=== PATIENT | male | born 1980 | race Caucasian/White ===

== ENCOUNTER 2025-01-16 09:54 | Inpatient (IN) | payer BC, SELFPAY ==
[2025-01-16] VITALS (10 sets, daily range): BP systolic 112–132; BP diastolic 61–91; PULSE 77–89; RESP 16–22; TEMP 36.3–37.2; O2SAT 95–99; BMI 34.3
--- NOTE | ~2025-01-16 | CT_ITS ---
CLINICAL HISTORY: abdominal pain CT abdomen and pelvis with contrast Comparison: None Findings: The lung bases are clear. The liver, gallbladder, spleen, adrenal glands and pancreas are unremarkable. Kidneys, ureters and bladder are normal. Prostate gland is unremarkable. There is anastomosis within the left lower quadrant which is patent however there is questionable breakdown given the prominent stranding and tiny foci of free air, axial image 64. Mild thickening of the proximal sigmoid colon distal to this region. Reference axial images 70-75. No current abscess. No acute osseous finding. Impression: Along the anterior margin of the left lower quadrant colonic anastomosis there is redundant soft tissue and significant stranding with evidence of perforation. Anastomotic breakdown versus perforated diverticulitis. No abscess currently. Close follow-up recommended. This document has been electronically signed by: Chaim Degroot MD on 01/16/2025 11:55:22
[2025-01-16 10:22] LABS: MANUAL DIFF FLAG NO
[2025-01-16 10:23] LABS: Basophils Absolute Auto 0.1 X10*3/uL (0.0-0.2); Basophils Percent Auto 0.6 % (0-2); Eosinophils Absolute Auto 0.1 X10*3/uL (0.0-0.4); Eosinophils Percent Auto 0.6 % (0-4); Hematocrit 43.8 % (42.0-52.0); Hemoglobin 15.3 g/dl (14.0-18.0); Imm Gran Abs Auto 0.06 X10*3/uL (0.00-0.03); Imm Gran Pct Auto 0.4 % (0.0-0.4); Lymphocytes Absolute Auto 2.2 X10*3/uL (1.2-4.9); Lymphocytes Percent Auto 15.8 % (20-40); Mean Corpuscular HGB Conc 34.9 g/dl (31.0-36.0); Mean Corpuscular Hemoglobin 29.5 pg (27.0-33.0); Mean Corpuscular Volume 84.6 fL (80.0-98.0); Mean Platelet Volume 8.9 fL (9.4-12.4); Monocytes Absolute Auto 1.1 X10*3/uL (0.1-1.2); Monocytes Percent Auto 7.7 % (2-11); Neutrophils Absolute Auto 10.4 x10*3/uL (2.0-8.3); Neutrophils Percent Auto 74.9 % (45-73); Platelet Count 338 X10*3/uL (160-400); Red Blood Count 5.18 X10*6/uL (4.60-5.80); Red Cell Distribution Width 12.7 % (11.0-16.0); White Blood Count 13.9 X10*3/uL (4.8-10.8)
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
[2025-01-16 10:36] LABS: Alanine Aminotransferase 39 U/L (0-40); Albumin Level 4.5 g/dL (3.5-5.0); Alkaline Phosphatase 81 U/L (39-117); Anion Gap 14 (12-20); Aspartate Amino Transferase 23 U/L (5-37); Bilirubin Direct 0.1 mg/dL (0.0-0.5); Bilirubin Total 0.4 mg/dL (0.0-1.0); Blood Urea Nitrogen 15 mg/dL (9-16); Calcium 9.4 mg/dL (8.4-10.2); Carbon Dioxide 22 mmol/L (22-29); Chloride 106 mmol/L (96-108); Creatinine Clr Calc Pharmacy 136.2; Estimated Glomerular Filt Rate > 60; Glucose Random 100 mg/dL (60-115); Lipase 15 U/L (8-78); Potassium 4.1 mmol/L (3.3-5.1); Sodium 138 mmol/L (135-145); Total Protein 7.7 g/dL (6.5-8.0)
[2025-01-16] MEDS: 0.9 % Sodium Chloride 1,000 ML 999 ML IVCONT ×2 (10:47→12:41)
[2025-01-16] MEDS: HYDROmorphone HCl 0.5 MG/0.5 ML SYRINGE IVPUSH ×3 (10:47→16:18)
--- OUTSIDE RECORDS SUMMARY | 2025-01-16 10:49 | XMS_ITS | Encounter Summary ---
Author Organization [facility] Address [address] [place] [address] Care Team Providers Care Track Walker Name Role Phone No, Pcp (Do Not Change Name) Primary Care Provid er Unavailable Encounter Details Date Type Department Care Team (Latest Contact Info) Description 06/19/2021 Transcribed Orders [place] - [facility] [address] [facility] [address] [place] [address] Mitchel Presley DPM [address] [facility] [address] [place] [address] Macronychia (Primary Dx) Social History Tobacco Use Types Packs/Day Years Used Date Smoking Tobacco: Never Assessed Sex and Gender Information Value Date Recorded Sex Assigned at Not on file Legal Sex Male 9:57 AM EDT Gender Identity Not on file Sexual Orientation Not on file documented as of this encounter Plan of Treatment Not on file documented as of this encounter Results * Hepatic function panel (06/19/2021 10:03 AM EDT) Total Bilirubin 0.4 0.0 - 1.0 mg/dL 06/19/2021 1:48 PM [facility] PATHOLOG[facility] Comment:Use of this assay is not recommended for patients undergoing treatment with Eltrombopag due to the potential for falsely elevated results. Bilirubin, Direct 0.1 0.0 - 0.3 mg/dL 06/19/2021 1:48 PM [facility] Bilirubin, Indirect 0.3 mg/dL 06/19 1:48 PM [facility] Alkaline Phosphatase 79 20 - 135 U/L 06/19/2021 1:48 PM [facility] PATHOLOG[facility] Alanine Aminotransferase (ALT) 54 12 - 78 U/L 06/19/2021 1:48 PM EDT [facility] Aspartate Aminotransferase (AST) 20 5 - 37 U/L 06/19/2021 1:48 PM [facility] AST/ALT Ratio 0.4 See Comment 06/19/2021 1:48 PM EDT [facility] Comment: Adult with mild elevations of transaminases (< 5 times upper limit of normal): AST/ALT > 2 suggests alcoholic liver injury AST/ALT < 1 suggests non-alcoholic fatty liver disease (NAFLD) [place] (healthy): AST/ALT can be > 3 on day 0 AST/ALT < 2 by day 5 The thresholds provided focus on the most common etiologies of elevated serum transaminase levels and the associated alteration of AST:ALT ratios; they are not intended to exclude other feasible and clinically appropriate possibilities Total Protein 7.5 6.4 - 8.2 g/dL 06/19/2021 1:48 PM [facility] Albumin 4.0 3.4 - 5.0 g/dL 06/19/2021 1:48 PM [facility] Globulin 3.5 g/dL 06/19/2021 1:48 PM [facility] A/G Ratio 1.1 06/19/2021 1:48 PM [facility] Blood Venipuncture / Unknown 06/19/2021 10:03 AM EDT 06/19/2021 10:03 AM EDT Mitchel Presley DP LAB BLOOD ORDERABLES Final Re sult [facility] PATH[facility] [address] [place] [address] documented in this encounter Visit Diagnoses Diagnosis Macronychia- Primary Other specified disease of nail documented in this encounter Additional Health Concerns Infection Onset Date Last Indicated Resolved Time R/O COVID-19 04/06/2022 04/06/2022 04/06/2022 6:55 PM EDT COVID-19 04/06/2022 04/06/2022 04/16/2022 7:18 PM EDT documented as of this encounter Care Teams Track Walker Relationship Specialty Start Date End Date No, Pcp (Do Not Change Name) PCP - General 06/19/21 documented as of this encounter
--- OUTSIDE RECORDS SUMMARY | 2025-01-16 10:49 | XMS_ITS | Clinical Summary ---
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?C (98.7 ??F) 12/23/2020 1:57 PM ED T Respiratory Rate 18 12/23/2020 1:57 PM EDT Oxygen Saturation - - Inhaled Oxygen Concentration - - Weight 103 kg (227 lb) 12/23/2020 1:57 PM EDT Height 185.4 cm (6' 1 ) 12/23/2020 1:57 PM EDT Body Mass Index 29.95 12/23/2020 1:57 PM EDT Plan of Treatment Health Maintenance Due Date Last Done Comments Hepatitis C Virus Screening 1982 HIV Screening 1995 DTaP/Tdap/Td Vaccines (1 - Tdap) 2001 Hepatitis B Vaccines (1 of 3 - 19+ 3-dose series) 2001 Influenza Vaccine 04/28/2024 08/03/2019 COVID-19 Vaccine (4 - 2023-2 5 season) 2024 10/13/2021, 01/22/2021, 01/01/2021 HPV Vaccines Aged Out No longer eligi ble based on patient's age to complete this topic Pneumococcal Vaccine: Pediatric (0-5 Years) and At-Risk Patients (6 to 49 Years) Aged Out No longer eligible b ased on patient's age to complete this topic Insurance [facility]
[2025-01-16] MEDS: iohexoL 350 MG/ML 100 ML INFUS..BTL IV (11:22)
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
[2025-01-16] MEDS: Piperacillin Sodium/Tazobactam 4.5 GM in 0.9 % Sodium Chloride 100 ML IV (12:40)
[2025-01-16 12:48] LABS: Appearance Urine Clear; Color Urine Yellow; Glucose Urine UA Negative (Negative); Leukocyte Esterase Urine Negative (Negative); Nitrite Urine Negative (Negative); PH 6.5 (5.0-9.0); UMIC TRIGGER UACC YES; Urine Blood Moderate (2+) (Negative); Urine Ketones Negative (Negative); Urine Protein Negative (Neg-Trace)
[2025-01-16 12:50] LABS: Bacteria Urine None Seen (None Seen); Hyaline Casts Urine 0-2 /LPF (0-2); RBC Urine >20 /HPF (0-2); Squamous Epithelial Cell Urine 0-2 /HPF (0-2); WBC Urine 0-5 /HPF (0-5)
--- NOTE | 2025-01-16 13:10 | P.CONAN_ITS ---
HPI - Anesthesia Eval Consult details Narrative: Foe E-lap. Free air. PMFSH Active Problems Active Problems: All Active Problems Perforated bowel (Acute) Acute abdomen (Acute) Family History Family History (Updated 01/16/25 @ 12:32 by Connor Paulson MD) Other Family history of colon cancer Family history of problems with anesthesia: No Surgical History History of Problems with Anesthesia: No Social History Social History Advance Directives: No Advance Directives Information Provided: No Meds Allergies Allergy/AdvReac Type Severity Reaction Status Date / Time No Known Allergies Allergy Verified 01/16/25 10:08 Active Medications: Current Medications Acetaminophen (Acetaminophen 325 Mg Tablet) 650 mg PO Q6H PRN PRN Reason: Pain, Mild 1-3,fever,headache Calcium Carbonate (Calcium Carbonate 750 Mg Tab.Chew) 750 mg PO Q4H PRN PRN Reason: Heartburn Sodium Chloride (Ns) 1,000 mls @ 999 mls/hr IVCONT .Q1H1M [facility] Stop: 01/16/25 13:30 Last Admin: 01/16/25 12:41 Dose: 999 mls/hr Piperacillin Sod/Tazobactam (Sod 3.375 gm/ Sodium Chloride) 50 mls @ 100 mls/hr IV Q6H VELVET Lactated Ringer's (Lr) 1,000 mls @ 100 mls/hr IVCONT .Q10H VELVET Magnesium Hydroxide (Milk Of Magnesia 30 Ml Oral.Susp) 30 ml PO DAILY PRN PRN Reason: Constipation Melatonin (Melatonin 3 Mg Tablet) 6 mg PO BEDTIME PRN PRN Reason: Insomnia Sodium Chloride (0.9 % Sodium Chloride Flush 3 Ml Syringe) 3 ml IVFLUSH QSHIFT [facility] Exam Height,Weight and Vital Signs: Height 6 ft 1 in Weight 117.934 kg Last Vital Signs Temp 99.0 F 01/16/25 10:06 Pulse 89 01/16/25 12:25 Resp 19 01/16/25 12:25 BP 131/91 H 01/16/25 12:25 Pulse Ox 99 01/16/25 12:25 O2 Del Method Room Air 01/16/25 12:25 Pertinent Lab Results Pertinent Lab Results: Laboratory Tests 01/16/25 01/16/25 01/16/25 10:14 12:34 12:39 WBC 13.9 H RBC 5.18 Hgb 15.3 Hct 43.8 MCV 84.6 MCH 29.5 MCHC 34.9 RDW 12.7 Plt Count 338 MPV 8.9 L Immature Gran % (Auto) 0.4 Neut % (Auto) 74.9 H Lymph % (Auto) 15.8 L [place] % (Auto) 7.7 Eos % (Auto) 0.6 Baso % (Auto) 0.6 Lymph # (Auto) 2.2 [place] # (Auto) 1.1 Eos # (Auto) 0.1 Baso # (Auto) 0.1 Abs Immat Gran (auto) 0.06 H Absolute Neuts (auto) 10.4 H Absolute Nucleated RBC 0.000 Nucleated RBC % (auto) 0.0 Sodium 138 Potassium 4.1 Chloride 106 Carbon Dioxide 22 Anion Gap 14 BUN 15 Creatinine 0.95 Estim Creat Clear Calc 136.2 Estimated GFR > 60 Random Glucose 100 Calcium 9.4 Total Bilirubin 0.4 Direct Bilirubin 0.1 AST 23 ALT 39 Alkaline Phosphatase 81 Total Protein 7.7 Albumin 4.5 Lipase 15 Urine Color Yellow Urine Appearance Clear Urine pH 6.5 Ur Specific [place] 1.020 Urine Protein Negative Urine Glucose (UA) Negative Urine Ketones Negative Urine Blood Moderate (2+) H Urine Nitrite Negative Ur Leukocyte Esterase Negative Urine RBC >20 H Urine WBC 0-5 Ur Squamous Epith Cells 0-2 Urine Bacteria None Seen Hyaline Casts 0-2 Blood Type A Positive Airway Mallampati Class: II TM Dist: <=3cm Neck ROM: Full Loose/Missing/Broken Teeth: No Heart: ok Lungs: ok Other: Has an acute macular rash on torso that looks like an allergic reaction - most likely from the Zosyn he was given in ED. Pharmacy allerted. Assessment and Plan Assessment Anesthesia Assessment: Anesthesia Plan Discussed and Chart Reviewed Final Anesthetic Review Family History of Problems with Anesthesia: No History of Problems with Anesthesia: No NPO: Yes ASA Class: III and Emergency Final Preanesthetic Review: No Changes in Pt Med Stat, Meds/Allgs Chart Reviewed, Consent Obtained/Reviewed and Anes Risks/Benef Reviewed Patient Risk: Intermediate Procedure Risk: Intermediate Anesthetic Plan Anesthetic Plan: GA and Agree w/ Assess. and Plan Disposition: Standard PACU
--- NOTE | 2025-01-16 13:32 | PC.NURSE ---
patient to OR
--- NOTE | 2025-01-16 14:39 | PHA.MEDREC ---
Pharmacy Consult ? Medication Reconciliation Pharmacy has completed the medication reconciliation. Spoke to patient's LISA Castro on the phone ([phone]) who confirmed home medications. Did not clarify testosterone instructions, if medication is brought in we made need to change sig.
--- NOTE | 2025-01-16 16:00 | P.OP_ITS ---
Operative Note Operative Note Date of Service: 01/16/25 Narrative: Preop diagnosis: Perforated sigmoid Postop diagnosis: The same , with extensive adhesions Procedure: Laparotomy, resection of short segment of sigmoid with perforation, extensive lysis of adhesions, end-colostomy Surgeon: Connor Paulson MD The patient is a 50-year-old male with sudden and severe left lower quadrant pain this morning. He had a CAT scan showing extraluminal air a very short segment of the sigmoid, with associated inflammatory changes. In view of severe pain and tenderness, I recommended for him to undergo laparotomy. I discussed the technique of the planned procedure as well as the risks, benefits, and alternatives He was brought to the operating room. He was placed supine under general anesthesia via endotracheal tube. A Garcia catheter was inserted. The abdomen was prepped and draped in the usual sterile fashion. A surgical time-out was done. The patient had received scheduled IV Zosyn. He did have some redness of his skin chest presumably from an allergic reaction to Zosyn. A midline laparotomy me incision was made using blade 15. And this carried down through the full-thickness of the skin and thick subcutaneous fat. It was noted that the patient had a thick amount of subcutaneous fat with a relatively high BMI. There was note of a lot of fibrotic changes in the area midline as well secondary to his previous laparotomy. Eventually was able to define the fascia. I incised the fascia and gently incised layer by layer until I entered the peritoneum. I divided the rest of the fascia of the midline to optimize the length of the skin incision using electrocautery. We noted a lot of adherent omentum using the pelvis and the left side. From here on we had to proceed very slowly in view of the severe and thick adhesions. We had to do careful dissection with combination of electrocautery, Metzenbaum scissors as well as the LigaSure . It was noted that the left colon was very deep view of his anatomy. This part of the procedure therefore took an extended period of time. We also had to do the same extensive lysis of adhesions in the upper part of the abdomen along the incision Eventually, a prolonged period of dissection I was able to see the sigmoid. I followed this proximally and there was note of a very short segment of the sigmoid with severe inflammatory changes consisting of very thickened, indurated fat and erythematous serosa. This appeared to have a small perforation as well probably less than 1 cm in diameter. This seemed to be consistent with an area of the staple lines from his previous anastomosis. We positioned our Bookwalter retractors to allow better visualization in the left side. We carefully defined this short segment using careful dissection with electrocautery and Metzenbaum scissors. Eventually I was able to clear and define the sigmoid distal to this. I created a mesenteric window and used the EM 60 mm stapler to divide this We continued to do gentle dissection of this inflamed, indurated segment. There was no spillage of stool but there was note of visible stool at the perforation itself. There was note of extensive adhesions surrounding this including at the mesentery. The entire mesentery of the sigmoid and left colon mesh for shortened in view of the previous surgery We had a difficult time identifying the proximal sigmoid but eventually was able to create a mesenteric window. I had to use a TA 60 mm stapler to transect this because of the difficult angle and very thick amount of inflamed fatty tissue. I also had to further define the attached mesentery of this disease segment. I carefully divided this mesentery with the LigaSure until was able to completely free up this short segment with a perforation. This was sent as a specimen There was note of very foreshortened mesentery of the left colon and we had mobilized more of the fibrous and peritoneal attachments surrounding this left colon to allow us mobilization for creation of the colostomy Again this part of the procedure took an extended period of time because of the dense adhesions in the entire left colon laterally. To do careful dissection with Metzenbaum scissors and the LigaSure. I had to also thin out the fibrotic peritoneum of the mesentery of the left colon to achieve more mobilization. Eventually after a prolonged period of dissection, I felt that this area would be able to reach the abdominal wall as a colostomy. I excised the discoid piece of skin on the old colostomy scar. He was done using blade 10. I carried down the incision with electrocautery to expose the anterior sheath. I incised the anterior sheath he had again there was note of a lot of fibrotic changes. I used electrocautery to divide through the thickened and fibrotic muscle and the posterior sheath until was able to enter the abdomen again. I dilated this stoma opening to 3 fingers I used the [place] to pull up the transected left colon through the stoma opening. We had just enough length to allow excision of our colostomy I excised the staple line and secured the left colon opening to the subdermal layer with a circumferential row of Polysorb 3-0 sutures, full-thickness through the bowel wall to the subdermal layer The stoma appeared viable at the end. I then proceeded to irrigate. I examined the bowel loops surrounding the area of dissection in the left side including the small bowel and there was no evidence of any bowel injury After copiously irrigation, I suctioned out the irrigant fluid and this was clear We observed for hemostasis. Once hemostasis was confirmed, I then proceeded to close the fascia with a running Maxon 1 stitch. Skin closure was achieved with skin max. I infiltrated all incisions with Marcaine 0.5% for postop analgesia I applied the stoma appliance Dressings were placed on the midline incision of the procedure was completed The patient tolerated procedure well. There were no immediate complications. Initial final counts of sponges and instruments were correct. Estimated blood loss about 100 cc The patient was extubated without difficulty and transferred to the recovery room with stable vital signs.
[2025-01-16] MEDS: Acetaminophen 1,000 MG/100 ML PIGGYBACK 400 MG IV ×2 (16:03→21:56)
[2025-01-16] MEDS: Lactated Ringers 1,000 ML 100 ML IVCONT (16:55)
[2025-01-16] MEDS: metroNIDAZOLE/NS 500 MG/100 ML PIGGYBACK 100 MG IV (16:55)
--- NOTE | 2025-01-16 17:26 | PM.EVENT ---
Event Note Date of Service: 01/16/25 Event Note: Seen postop Underwent laparotomy and sigmoid resection earlier with colostomy for perforation Appears to have adequate pain control Stable vital signs Abdomen is soft Stoma erythematous, a little dusky on areas but viable, no output the Good urine output, clear Pain management On clear liquids Incentive spirometry Significant other Gloria at bedside Time Spent With Patient Time: Total time managing care of this patient today ____ minutes.
[2025-01-16] MEDS: oxyCODONE HCl Immed Release 5 MG TABLET 10 MG PO ×2 (17:49→21:55)
[2025-01-16] MEDS: levoFLOXacin/D5W 500 MG/100 ML PIGGYBACK 100 MG IV (18:12)
[2025-01-16] MEDS: Morphine Sulfate 4 MG/ML CARTRIDGE IVPUSH (19:41)
[2025-01-17] VITALS (8 sets, daily range): BP systolic 111–126; BP diastolic 61–75; PULSE 83–106; RESP 16–18; TEMP 36.3–38.6; O2SAT 93–95
[2025-01-17] MEDS: Morphine Sulfate 4 MG/ML CARTRIDGE IVPUSH ×6 (00:20→19:19)
[2025-01-17] MEDS: metroNIDAZOLE/NS 500 MG/100 ML PIGGYBACK 100 MG IV ×3 (01:10→18:34)
[2025-01-17] MEDS: Acetaminophen 1,000 MG/100 ML PIGGYBACK 400 MG IV ×4 (03:59→21:52)
[2025-01-17] MEDS: oxyCODONE HCl Immed Release 5 MG TABLET 10 MG PO ×2 (05:59→22:43)
[2025-01-17] MEDS: Lactated Ringers 1,000 ML 100 ML IVCONT ×2 (06:02→23:53)
--- NOTE | 2025-01-17 08:07 | P.PNGS_ITS ---
Subjective Subjective Date of Service: 01/17/25 Interval history: Has incisional pain but otherwise seems to have adequate pain control Says he has been passing small amounts of gas per stoma Physical Exam 2 Vital Signs: Vital Signs: Last Vital Signs Temp 98.5 F 01/17/25 07:01 Pulse 83 01/17/25 07:01 Resp 16 01/17/25 07:01 BP 117/61 01/17/25 07:01 Pulse Ox 95 01/17/25 07:01 O2 Del Method Room Air 01/17/25 07:01 O2 Flow Rate 2 01/16/25 16:22 BMI result Body Mass Index 34.3 Const: General: comfortable and no acute distress Resp: Effort & Inspection: normal respiratory effort Cardio: Rate: regular rate GI: Other: Dressings dry, stoma with no stool yet, stoma dusky but otherwise viable Palpation (GI): Soft to palpation and not firm Objective Data Active Medications Calcium Carbonate (Calcium Carbonate 750 Mg Tab.Chew) 750 mg PO Q4H PRN PRN Reason: Heartburn Lactated Ringer's (Lr) 1,000 mls @ 100 mls/hr IVCONT .Q10H [facility] Last Admin: 01/17/25 06:02 Dose: 100 mls/hr Documented By: PRASAD Levofloxacin (Levaquin) 500 mg in 100 mls @ 100 mls/hr IV Q24H [facility] Last Infusion: 01/16/25 19:56 Dose: Infused Documented By: PRASAD Metronidazole (Flagyl) 500 mg in 100 mls @ 100 mls/hr IV Q8H [facility] Last Infusion: 01/17/25 02:57 Dose: Infused Documented By: PRASAD Acetaminophen (Ofirmev) 1,000 mg in 100 mls @ 400 mls/hr IV Q6H [facility] Last Infusion: 01/17/25 04:16 Dose: Infused Documented By: PRASAD Magnesium Hydroxide (Milk Of Magnesia 30 Ml Oral.Susp) 30 ml PO DAILY PRN PRN Reason: Constipation Melatonin (Melatonin 3 Mg Tablet) 6 mg PO BEDTIME PRN PRN Reason: Insomnia Morphine Sulfate (Morphine Sulfate 4 Mg/Ml Cartridge) 4 mg IVPUSH Q3H PRN; Protocol PRN Reason: Pain, Severe (Pain Scale 7-10) Last Admin: 01/17/25 07:12 Dose: 4 mg Documented By: DAR Naloxone HCl (Naloxone Hcl 0.4 Mg/Ml Vial) 0.04 mg IVPUSH Q5M PRN PRN Reason: Excessive sedation or RR < 8 Nicotine (Nicotine 7 Mg Patch.Td24) 7 mg TRANSDERMA DAILY [facility] Ondansetron HCl (Ondansetron Hcl 4 Mg/2 Ml Vial) 4 mg IVPUSH Q6H PRN PRN Reason: Nausea and Vomiting Oxycodone HCl (Oxycodone Hcl Immed Release 5 Mg Tablet) 10 mg PO Q4H PRN PRN Reason: Pain, Moderate(Pain Scale 4-6) Last Admin: 01/17/25 05:59 Dose: 10 mg Documented By: PRASAD Sodium Chloride (0.9 % Sodium Chloride Flush 3 Ml Syringe) 3 ml IVFLUSH QSHIFT [facility] Last Admin: 01/17/25 07:07 Dose: Not Given Documented By: DAR Non-Admin Reason: IV Running Labs 01/17/25 09:05 01/17/25 09:05 Labs: Laboratory Results - last 24 hr 01/16/25 01/16/25 01/16/25 10:14 12:34 12:39 MCV 84.6 MCH 29.5 MCHC 34.9 RDW 12.7 Plt Count 338 MPV 8.9 L Immature Gran % (Auto) 0.4 Neut % (Auto) 74.9 H Lymph % (Auto) 15.8 L [place] % (Auto) 7.7 Eos % (Auto) 0.6 Baso % (Auto) 0.6 Lymph # (Auto) 2.2 [place] # (Auto) 1.1 Eos # (Auto) 0.1 Baso # (Auto) 0.1 Abs Immat Gran (auto) 0.06 H Absolute Neuts (auto) 10.4 H Absolute Nucleated RBC 0.000 Nucleated RBC % (auto) 0.0 Anion Gap 14 Estim Creat Clear Calc 136.2 Estimated GFR > 60 Random Glucose 100 Calcium 9.4 Total Bilirubin 0.4 Direct Bilirubin 0.1 AST 23 ALT 39 Alkaline Phosphatase 81 Total Protein 7.7 Albumin 4.5 Lipase 15 Urine Color Yellow Urine Appearance Clear Urine pH 6.5 Ur Specific [place] 1.020 Urine Protein Negative Urine Glucose (UA) Negative Urine Ketones Negative Urine Blood Moderate (2+) H Urine Nitrite Negative Ur Leukocyte Esterase Negative Urine RBC >20 H Urine WBC 0-5 Ur Squamous Epith Cells 0-2 Urine Bacteria None Seen Hyaline Casts 0-2 Blood Type A Positive Antibody Screen NEGATIVE Procedures Date of Service Date of Service: 01/17/25 Progress Note: A&P Assessment and plan (1) Perforated bowel: Status: Acute Assessment and Plan: Status post sigmoid resection with colostomy Good urine output Plan to DC Garcia today Passing flatus via the stoma - we will re-evaluate later and possibly advance diet Stoma dusky but viable Await full return of GI function Pain Management Incentive spirometry Time Spent With Patient Time: Total time managing care of this patient today ____ minutes. Quality Stroke Does the patient have a stroke diagnosis?: No VTE Prior VTE?: No VTE Risk Level:: Medical - moderate - high VTE Device Contraindication: N/A - Device Ordered VTE Drug Contraindication: N/A - Med Ordered
[2025-01-17] MEDS: Nicotine 7 MG PATCH.TD24 TRANSDERMA (08:33)
[2025-01-17 09:26] LABS: Hematocrit 40.3 % (42.0-52.0); Hemoglobin 13.8 g/dl (14.0-18.0); Mean Corpuscular HGB Conc 34.2 g/dl (31.0-36.0); Mean Corpuscular Hemoglobin 29.6 pg (27.0-33.0); Mean Corpuscular Volume 86.5 fL (80.0-98.0); Platelet Count 305 X10*3/uL (160-400); Red Blood Count 4.66 X10*6/uL (4.60-5.80); Red Cell Distribution Width 13.2 % (11.0-16.0); White Blood Count 12.2 X10*3/uL (4.8-10.8)
--- NOTE | 2025-01-17 09:27 | HO.POSTANES ---
Post Anesthesia Evaluation Post Anesthesia Evaluation Date of Service: 01/17/25 Vital Signs: Vital Signs Temp Pulse Resp BP Pulse Ox O2 Del Method 01/17/25 07:01 98.5 F 83 16 117/61 95 Room Air 01/17/25 03:27 97.3 F 90 18 119/69 95 Room Air 01/16/25 23:48 98.5 F 88 18 122/70 97 Room Air Anesthesia: General Endotracheal-GETA Mental Status: Awake Pain Control: Satisfactory Nausea/Vomiting: None Hydration: Adequate Anesthesia-Related Issues: No Anes. Related Issues
[2025-01-17 09:36] LABS: Anion Gap 11 (12-20); Blood Urea Nitrogen 12 mg/dL (9-16); Calcium 8.7 mg/dL (8.4-10.2); Carbon Dioxide 27 mmol/L (22-29); Chloride 101 mmol/L (96-108); Creatinine Clr Calc Pharmacy 134.8; Estimated Glomerular Filt Rate > 60; Glucose Random 112 mg/dL (60-115); Potassium 4.2 mmol/L (3.3-5.1); Sodium 135 mmol/L (135-145)
--- NOTE | 2025-01-17 12:06 | MHC.CM.PN ---
Addendum entered by Lea Hathaway 01/17/25 12:12: A HCP has been documented and scanned into pts EMR. Original Note: Patient S/P Laparotomy with Colostomy for Perforated Bowel. He lives with S.O.. He is independent with all functional mobility. PCP Madhu KELLY. PCP office called to obtain preferred provider contact info, for Home services. A referral has been sent to [facility] with [facility] and private transportation. Wound care nurse is working with the patient for ostomy care.
--- NOTE | 2025-01-17 14:22 | PM.EVENT ---
Event Note Date of Service: 01/17/25 Event Note: Seen on afternoon rounds Says he has been ambulating Good pain control Small amounts of flatus from his stoma but output Looks comfortable Stable vital signs Garcia removed Pain management Ambulate Time Spent With Patient Time: Total time managing care of this patient today ____ minutes.
--- NOTE | 2025-01-17 16:33 | HO.OSTOMY ---
Ostomy Consult: Initial Teaching 44yr old male admitted to [facility] on01/16/25 see H&P for detailed history and admission.? Consult for new ostomy teaching. ?He had an End Colostomy creation on 01/16/[address] Paulson. ?Upon entry into patient's room, he is lying in his bed, he is alert and oriented x 3, he currently has no complaints. ?Introductions were completed, he is agreeable to continuing with teaching. ? We discussed his pain control at 9/10 at the current moment, he is able to carry on a conversation without grimacing and no observed pain signals. He reports increasing the use of his IS and ambulating the entire unit (1x today so far). ?We began by discussing general knowledge about the Colostomy and questions he had. He reports he had colostomy 20 years ago so feels pretty comfortable with its care would like a refresher on how to change but feels comfortable emptying his pouch. ?We discussed opening and closing the ostomy pouch. He was able to independently provide a return demonstration on an empty pouch. ?He had not yet emptied his pouch only bowel sweat is noted.? We discussed the importance of emptying pouch when 1/3 to 1/2 full, how to empty pouch, and lining water with toilet paper to prevent splash back. He was also educated on when to contact recreational resort manager/Dr Paulson's office/seek emergency medical treatment. Aware that Rx written for pouches and rings will be sent by Outpt nurse to [place] for home delivery.? Reviewed written education with patient and left at bedside for further review. ? Permission was granted for pouch assessment and no leak was noted.? Stoma is dark red and appears viable through pouch flat stoma.? Due to no output from stoma pouch is not needed to be changed at this time.? Will assess at tomorrow?s teaching. ?He reported having no questions at this time. ?Patient was made aware that I will return to bedside later in week for ongoing education - however to note patient seems to have a good understanding of care and material at this time. ?He will benefit from VNA services at time of discharge. ?All questions and concerns addressed at this time. Next teaching session goals: Demonstrate open and close independently Steps to a pouch change he is able to recall We discussed the following steps: 1. Empty pouch before pouch change 2. Remove pouch using push/pull technique from top to bottom 3. Cleanse stoma and skin with tap water only - no soap or baby wipes 4. Pat dry 5. Measure stoma and cut new pouch no more than 1/8 inch larger than stoma and no smaller than stoma 6. If instructed by your ostomy nurse stretch barrier seal to the size of the stoma and press onto skin around stoma (up to the edge of the stoma but not onto the stoma) 7. Press the new pouch into place and hold for several minutes (close pouch tail) 8. Empty pouch when 1/3 to 1/2 full 9. Change pouch twice weekly on a schedule (for example, every Thursday and ) and as needed for any leaking (feels like intense itch or burn at edge of stoma) 10. May order pre-cut pouches (already cut to size of stoma) once stoma measures the same size consistently. ?
[2025-01-17] MEDS: levoFLOXacin/D5W 500 MG/100 ML PIGGYBACK 100 MG IV (16:59)
[2025-01-18] MEDS: metroNIDAZOLE/NS 500 MG/100 ML PIGGYBACK 100 MG IV ×3 (01:09→16:15)
[2025-01-18 03:28] VITALS: BP 123/70; PULSE 93; RESP 18; TEMP 37.7; O2SAT 94
[2025-01-18] MEDS: Acetaminophen 1,000 MG/100 ML PIGGYBACK 400 MG IV ×4 (03:53→21:21)
[2025-01-18] MEDS: Morphine Sulfate 4 MG/ML CARTRIDGE IVPUSH ×2 (03:57→16:52)
[2025-01-18] MEDS: Ketorolac Tromethamine 30 MG/ML VIAL IVPUSH ×3 (06:49→17:42)
[2025-01-18] MEDS: oxyCODONE HCl Immed Release 5 MG TABLET 10 MG PO ×3 (06:50→19:53)
[2025-01-18 07:50] VITALS: BP 119/67; PULSE 88; RESP 18; TEMP 36.2; O2SAT 97
[2025-01-18] MEDS: Nicotine 7 MG PATCH.TD24 TRANSDERMA (09:21)
--- NOTE | 2025-01-18 09:26 | P.PNGS_ITS ---
Subjective Subjective Date of Service: 01/18/25 <Bashir Zacarias PA-C - Last Filed: 01/18/25 10:05> 01/19/25 <Connor Paulson MD - Last Filed: 01/19/25 08:54> Patient reports: feels better, still having pain (pain is improving to a 6 today), tolerating liquids well, flatus (via ostomy bag), no bowel movement and nausea < Bashir Zacarias PA-C - Last Filed: 01/18/25 10:05> Interval history: 44-year-old male POD 2 from partial sigmoid colon resection and stoma creation for a perforated bowel. Patient notes improvement in his pain from yesterday. Pain has decreased from and 8/9 to a 6 today when at rest. he endorses some increased pain with ambulation. He has been able to ambulate from the bed to the chair and to the bathroom to urinate. He is tolerating clear liquid diet well. He denies nausea or vomiting. Endorses feeling a bit bloated. He has not passed any stool in to the ostomy bag but endorses some flatus. He endorses incisional site pain. <Bashir Zacarias PA-C - Last Filed: 01/18/25 10:05> Physical Exam 2 Vital Signs: Vital Signs: Last Vital Signs Temp 97.2 F 01/18/25 07:50 Pulse 88 01/18/25 07:50 Resp 18 01/18/25 07:50 BP 119/67 01/18/25 07:50 Pulse Ox 97 01/18/25 07:50 O2 Del Method Room Air 01/18/25 07:50 O2 Flow Rate 2 01/16/25 16:22 BMI result Body Mass Index 34.3 <Bashir Zacarias PA-C - Last Filed: 01/18/25 10:05> Const: General: cooperative and no acute distress <KEMI Rodriguez Last Filed: 01/18/25 10:05> Orientation/consciousness: patient oriented x3 <KEMI Rodriguez Last Filed: 01/18/25 10:05> GI: Other: Incisions dressing removed, clean dry and intact. No signs of infection noted; no erythema, purulence. Stoma appears dusky and retracted <Bashir Zacarias PA-C - Last Filed: 01/18/25 10:05> Inspection: Yes distended <Bashir Zacarias PA-C - Last Filed: 01/18/25 10:05> Palpation (GI): Tenderness to palpation present (GI) (generalized mild tenderness to palpation. Incisional site tenderness) and No Rebound tenderness present <KEMI Rodriguez Last Filed: 01/18/25 10:05> Percussion: Yes tympanic to percussion <KEMI Rodriguez Last Filed: 01/18/25 10:05> Neuro: General: patient oriented x3 <KEMI Rodriguez Last Filed: 01/18/25 10:05> Objective Data Active Medications Calcium Carbonate (Calcium Carbonate 750 Mg Tab.Chew) 750 mg PO Q4H PRN PRN Reason: Heartburn Lactated Ringer's (Lr) 1,000 mls @ 80 mls/hr IVCONT .[id number] [facility] Last Admin: 01/17/25 23:53 Dose: 100 mls/hr Documented By: PRASAD Levofloxacin (Levaquin) 500 mg in 100 mls @ 100 mls/hr IV Q24H [facility] Last Infusion: 01/17/25 18:36 Dose: Infused Documented By: DAR Metronidazole (Flagyl) 500 mg in 100 mls @ 100 mls/hr IV Q8H [facility] Last Infusion: 01/18/25 02:10 Dose: Infused Documented By: PRASAD Acetaminophen (Ofirmev) 1,000 mg in 100 mls @ 400 mls/hr IV Q6H [facility] Last Admin: 01/18/25 09:22 Dose: 400 mls/hr Documented By: MARY Ketorolac Tromethamine (Ketorolac Tromethamine 30 Mg/Ml Vial) 30 mg IVPUSH Q6H [facility] Last Admin: 01/18/25 06:49 Dose: 30 mg Documented By: TAO Magnesium Hydroxide (Milk Of Magnesia 30 Ml Oral.Susp) 30 ml PO DAILY PRN PRN Reason: Constipation Melatonin (Melatonin 3 Mg Tablet) 6 mg PO BEDTIME PRN PRN Reason: Insomnia Morphine Sulfate (Morphine Sulfate 4 Mg/Ml Cartridge) 4 mg IVPUSH Q3H PRN; Protocol PRN Reason: Pain, Severe (Pain Scale 7-10) Last Admin: 01/18/25 03:57 Dose: 4 mg Documented By: ODRISAshley Naloxone HCl (Naloxone Hcl 0.4 Mg/Ml Vial) 0.04 mg IVPUSH Q5M PRN PRN Reason: Excessive sedation or RR < 8 Nicotine (Nicotine 7 Mg Patch.Td24) 7 mg TRANSDERMA DAILY [facility] Last Admin: 01/18/25 09:21 Dose: 7 mg Documented By: MARY Ondansetron HCl (Ondansetron Hcl 4 Mg/2 Ml Vial) 4 mg IVPUSH Q6H PRN PRN Reason: Nausea and Vomiting Oxycodone HCl (Oxycodone Hcl Immed Release 5 Mg Tablet) 10 mg PO Q4H PRN PRN Reason: Pain, Moderate(Pain Scale 4-6) Last Admin: 01/18/25 06:50 Dose: 10 mg Documented By: TAO Sodium Chloride (0.9 % Sodium Chloride Flush 3 Ml Syringe) 3 ml IVFLUSH QSHIFT [facility] Last Admin: 01/18/25 09:20 Dose: Not Given Documented By: MARY Non-Admin Reason: IV Running <Bashir Zacarias PA-C - Last Filed: 01/18/25 10:05> Labs CBC & Chem 7: 01/17/25 09:05 01/17/25 09:05 <Bashir Zacarias PA-C - Last Filed: 01/18/25 10:05> Labs: Laboratory Results - last 24 hr 01/17/25 09:05 MCV 86.5 MCH 29.6 MCHC 34.2 RDW 13.2 Plt Count 305 MPV 9.0 L Absolute Nucleated RBC 0.000 Nucleated RBC % (auto) 0.0 Anion Gap 11 L Estim Creat Clear Calc 134.8 Estimated GFR > 60 Random Glucose 112 Calcium 8.7 D <Bashir Zacarias PA-C - Last Filed: 01/18/25 10:05> Procedures Date of Service Date of Service: 01/18/25 <Bashir Zacarias PA-C - Last Filed: 01/18/25 10:05> 01/19/25 <Connor Paulson MD - Last Filed: 01/19/25 08:54> Progress Note: A&P Assessment and plan (1) Perforated bowel: Status: Acute <Bashir Zacarias PA-C - Last Filed: 01/18/25 10:05> Assessment and Plan: Feels well this morning Passing flatus via the colostomy No stool yet Good pain control Abdomen mildly distended but soft Stoma with no output, dusky but viable Continue to ambulate Await GI function Looks well clinically Seen and examined independently <Connor Paulson MD - Last Filed: 01/19/25 08:54> Assessment and Plan: Patient is a 44-year-old male POD 2 from laparotomy and partial sigmoid resection with stoma creation secondary to a sigmoid perforation. Patient is improving today, seems more comfortable in and out of bed. His pain is improving with current regimen. His abdominal exam is improving, he remains mildly distended and tympanic on exam. He has not passed any stool but has been passing flatus into the ostomy bag. The appearance is slightly dusky but functioning well, passing flatus throughout the exam. Patient has met with the ostomy specialist and is confident if his ability to care for the stoma. Patient is currently on levofloxacin and metronidazole, WBC improving today to 12.2 from 13.9. Dressing on the incision site were changed, the staple line is clean, dry and intact. No concern for infection at this time. A new dressing was applied during evaluation. Patient has been using incentive spirometry as instructed. He is tolerating a clear liquid diet. Continue current antibiotic regimen. continue clear liquid diet until further evaluation of bowel function late today. Continue current pain regimen. Continue spriometry and increasing ambulation as tolerated. <Bashir Zacarias PA-C - Last Filed: 01/18/25 10:05> Time Spent With Patient Time: Total time managing care of this patient today ____ minutes. <Bashir Zacarias PA-C - Last Filed: 01/18/25 10:05> Quality Stroke Does the patient have a stroke diagnosis?: No <Bashir Zacarias PA-C - Last Filed: 01/18/25 10:05> VTE Prior VTE?: No <KEMI Rodriguez Last Filed: 01/18/25 10:05> VTE Risk Level:: Medical - moderate - high <KEMI Rodriguez Last Filed: 01/18/25 10:05> VTE Device Contraindication: N/A - Device Ordered <KEMI Rodriguez Last Filed: 01/18/25 10:05> VTE Drug Contraindication: N/A - Med Ordered <Bashir Zacarias PA-C - Last Filed: 01/18/25 10:05>
[2025-01-18] MEDS: Docusate Sodium 100 MG CAPSULE PO ×2 (10:40→21:21)
[2025-01-18 12:00] VITALS: BP 121/65; PULSE 79; RESP 16; TEMP 36.3; O2SAT 97
--- NOTE | 2025-01-18 13:17 | MHC.CM.PN ---
PER ROUNDS PT NOT READY FOR DC TODAY
--- NOTE | 2025-01-18 14:16 | PM.EVENT ---
Event Note Date of Service: 01/18/25 Event Note: Seen on afternoon rounds Says he continues to do well Has been ambulating Passing good amounts of flatus via the stoma No stool yet Good pain control He is hungry I urged him to ambulate Okay to try full liquids tonight Started on Colace Time Spent With Patient Time: Total time managing care of this patient today ____ minutes.
[2025-01-18 15:32] VITALS: BP 122/64; PULSE 80; RESP 14; TEMP 36.9; O2SAT 96
--- NOTE | 2025-01-18 17:35 | HO.OSTOMY ---
Ostomy Consult: Follow up Teaching 44yr old male admitted to [facility] on01/16/25 see H&P for detailed history and admission.? Consult for new ostomy teaching. ?He had an End Colostomy creation on 01/16/[address] Paulson. ?Upon entry into patient's room, he is lying in his bed, he is alert and oriented x 3, he currently has no complaints. ?Introductions were completed, he is agreeable to continuing with teaching. ? We discussed his pain control at 01/05 at the current moment, he reports well controlled. He reports increasing the use of his IS and ambulating the entire unit (2x today so far). ?Patient educated to ambulate total of 4- 5 separate times. We began by discussing general knowledge about the Colostomy and questions he had - he had none. He was able to walk me through a verbal pouch change and was clearly knowledgeable from his previous experience with his own stoma 20 years ago. We discussed opening and closing the ostomy pouch. He was able to independently provide a return demonstration on an empty pouch. ?He had not yet emptied his pouch only bowel sweat is noted.? We discussed the importance of emptying pouch when 1/3 to 1/2 full, how to empty pouch, and lining water with toilet paper to prevent splash back. He was also educated on when to contact assayer helper/Dr Paulson's office/seek emergency medical treatment. Aware that Rx written for pouches and rings will be sent by Outpt nurse to [place] [facility] for home delivery.? Reviewed written education with patient and left at bedside for further review. ? Permission was granted for pouch assessment and no leak was noted.? However we decided to change him into Convex pouch due to the appearance of his stoma being flat. He was provided with a belt to secure the pouch and aid in stoma correction. Stoma is red moist with adherent slough noted - appears viable at this time no concern for stoma at this time. The stoma is relativly flat to his abdomen and will benefit from a convex pouch. He was able to perform the change independently with me as stand by. ?He reported having no questions at this time seems to have a good understanding of care and material at this time. ?He will benefit from VNA services at time of discharge. ?All questions and concerns addressed at this time. Some supplies left at bedside for home use. Stoma We discussed the following steps: 1. Empty pouch before pouch change 2. Remove pouch using push/pull technique from top to bottom 3. Cleanse stoma and skin with tap water only - no soap or baby wipes 4. Pat dry 5. Measure stoma and cut new pouch no more than 1/8 inch larger than stoma and no smaller than stoma 6. If instructed by your ostomy nurse stretch barrier seal to the size of the stoma and press onto skin around stoma (up to the edge of the stoma but not onto the stoma) 7. Press the new pouch into place and hold for several minutes (close pouch tail) 8. Empty pouch when 1/3 to 1/2 full 9. Change pouch twice weekly on a schedule (for example, every Thursday and ) and as needed for any leaking (feels like intense itch or burn at edge of stoma) 10. May order pre-cut pouches (already cut to size of stoma) once stoma measures the same size consistently. ?
[2025-01-18] MEDS: levoFLOXacin/D5W 500 MG/100 ML PIGGYBACK 100 MG IV (17:49)
[2025-01-18 19:19] VITALS: BP 123/62; PULSE 83; RESP 18; TEMP 36.5; O2SAT 95
[2025-01-18] MEDS: Lactated Ringers 1,000 ML 80 ML IVCONT (19:49)
[2025-01-18 23:21] VITALS: BP 100/57; PULSE 72; RESP 18; TEMP 36.8; O2SAT 96
[2025-01-19] MEDS: metroNIDAZOLE/NS 500 MG/100 ML PIGGYBACK 100 MG IV ×3 (00:06→15:56)
[2025-01-19] MEDS: Ketorolac Tromethamine 30 MG/ML VIAL IVPUSH ×2 (00:06→05:48)
[2025-01-19] MEDS: 0.9 % Sodium Chloride Flush 3 ML SYRINGE IVFLUSH ×3 (00:10→16:06)
[2025-01-19 03:07] VITALS: BP 111/66; PULSE 76; RESP 18; TEMP 37.1; O2SAT 95
[2025-01-19] MEDS: Acetaminophen 1,000 MG/100 ML PIGGYBACK 400 MG IV (03:08)
[2025-01-19 06:57] VITALS: BP 123/69; PULSE 80; RESP 16; TEMP 36.7; O2SAT 97
--- NOTE | 2025-01-19 07:10 | PM.PNGS ---
Subjective Subjective Date of Service: 01/19/25 <Bashir Zacarias PA-C - Last Filed: 01/19/25 09:36> 01/19/25 <Connor Paulson MD - Last Filed: 01/19/25 08:55> Patient reports: still having pain (6/10 generalized abd pain ), tolerating liquids well (tolerating full liquid diet), flatus and no bowel movement <Bashir Zacarias PA-C - Last Filed: 01/19/25 09:36> Interval history: 44-year-old male POD 3 from partial sigmoid colon resection and stoma creation for a perforated bowel. Patients pain remains about a 6, increases with ambulation. States his pain is well managed at rest. He is tolerating full liquid diet, states he is still hungry. Patient has been OOB ambulating frequently. Endorses using incentive spirometry as instructed. Patient denies any bowel movements, but has been passing flatus through stoma. He endorses feeling bloated. Denies nausea or vomiting. <Bashir Zacarias PA-C - Last Filed: 01/19/25 09:36> Physical Exam Vital Signs: Vital Signs: Last Vital Signs Temp 98.1 F 01/19/25 06:57 Pulse 80 01/19/25 06:57 Resp 16 01/19/25 06:57 BP 123/69 01/19/25 06:57 Pulse Ox 97 01/19/25 06:57 O2 Del Method Room Air 01/19/25 06:57 O2 Flow Rate 2 01/16/25 16:22 BMI result Body Mass Index 34.3 <Bashir Zacarias PA-C - Last Filed: 01/19/25 09:36> Const: General: no acute distress, well developed, alert and awake <Bashir Zacarias PA-C - Last Filed: 01/19/25 09:36> Orientation/consciousness: patient oriented x3 <KEMI Rodriguez Last Filed: 01/19/25 09:36> GI: Other: Dressing is clean dry and intact no erythema/edema. Stoma appears dusky and retracted with some necrotic tissue on the site <KEMI Rodriguez Last Filed: 01/19/25 09:36> Inspection: Yes distended (mild) <KEMI Rodriguez Last Filed: 01/19/25 09:36> Palpation (GI): Soft to palpation, Tenderness to palpation present (GI) (generalized incisional pain) and no guarding <Bashir Zacarias PA-C - Last Filed: 01/19/25 09:36> Percussion: Yes tympanic to percussion <Bashir Zacarias PA-C - Last Filed: 01/19/25 09:36> Neuro: General: patient oriented x3 <Bashir Zacarias PA-C - Last Filed: 01/19/25 09:36> Objective Data Active Medications Calcium Carbonate (Calcium Carbonate 750 Mg Tab.Chew) 750 mg PO Q4H PRN PRN Reason: Heartburn Docusate Sodium (Docusate Sodium 100 Mg Capsule) 100 mg PO BID [facility] Last Admin: 01/18/25 21:21 Dose: 100 mg Documented By: LAZARO Lactated Ringer's (Lr) 1,000 mls @ 80 mls/hr IVCONT .[id number] [facility] Last Admin: 01/18/25 19:49 Dose: 80 mls/hr Documented By: LAZARO Levofloxacin (Levaquin) 500 mg in 100 mls @ 100 mls/hr IV Q24H [facility] Last Infusion: 01/18/25 18:50 Dose: Infused Documented By: AUGUSTINE Metronidazole (Flagyl) 500 mg in 100 mls @ 100 mls/hr IV Q8H [facility] Last Infusion: 01/19/25 01:13 Dose: Infused Documented By: LAZARO Acetaminophen (Ofirmev) 1,000 mg in 100 mls @ 400 mls/hr IV Q6H [facility] Last Infusion: 01/19/25 03:32 Dose: Infused Documented By: LAZARO Ketorolac Tromethamine (Ketorolac Tromethamine 30 Mg/Ml Vial) 30 mg IVPUSH Q6H [facility] Last Admin: 01/19/25 05:48 Dose: 30 mg Documented By: LAZARO Magnesium Hydroxide (Milk Of Magnesia 30 Ml Oral.Susp) 30 ml PO DAILY PRN PRN Reason: Constipation Melatonin (Melatonin 3 Mg Tablet) 6 mg PO BEDTIME PRN PRN Reason: Insomnia Morphine Sulfate (Morphine Sulfate 4 Mg/Ml Cartridge) 4 mg IVPUSH Q3H PRN; Protocol PRN Reason: Pain, Severe (Pain Scale 7-10) Last Admin: 01/18/25 16:52 Dose: 4 mg Documented By: AUGUSTINE Naloxone HCl (Naloxone Hcl 0.4 Mg/Ml Vial) 0.04 mg IVPUSH Q5M PRN PRN Reason: Excessive sedation or RR < 8 Nicotine (Nicotine 7 Mg Patch.Td24) 7 mg TRANSDERMA DAILY [facility] Last Admin: 01/18/25 09:21 Dose: 7 mg Documented By: MARY Ondansetron HCl (Ondansetron Hcl 4 Mg/2 Ml Vial) 4 mg IVPUSH Q6H PRN PRN Reason: Nausea and Vomiting Oxycodone HCl (Oxycodone Hcl Immed Release 5 Mg Tablet) 10 mg PO Q4H PRN PRN Reason: Pain, Moderate(Pain Scale 4-6) Last Admin: 01/18/25 19:53 Dose: 10 mg Documented By: LAZARO Sodium Chloride (0.9 % Sodium Chloride Flush 3 Ml [facility]) [facility] Admin: 01/19/25 00:10 Dose: 3 ml Documented By: LAZARO <Bashir Zacarias PA-C - Last Filed: 01/19/25 09:36> Labs CBC & Chem 7: 01/17/25 09:05 01/17/25 09:05 <Bashir Zacarias PA-C - Last Filed: 01/19/25 09:36> Procedures Date of Service Date of Service: 01/19/25 <Bashir Zacarias PA-C - Last Filed: 01/19/25 09:36> 01/19/25 <Connor Paulson MD - Last Filed: 01/19/25 08:55> Progress Note: A&P Assessment and plan (1) Perforated bowel: Status: Acute <Bashir Zacarias PA-C - Last Filed: 01/19/25 09:36> Assessment and Plan: Feels well Has been ambulating Tolerating full liquids Passing good amounts of flatus Abdomen is soft Incision clean Stoma with patchy areas of superficial necrosis but otherwise viable No stool yet Diet as tolerated Continue to ambulate Clinically doing very well <Connor Paulson MD - Last Filed: 01/19/25 08:55> Assessment and Plan: 44-year-old male POD 3 from partial sigmoid colon resection and stoma creation for a perforated bowel. Patient is doing well today. Tolerating full liquid diet. Pain is well managed on current regimen. Patient is compliant with incentive spirometry, ambulating well. Continues to have abdominal pain to palpation. Patient has not yet passed a bowel movement, continues to pass flatus through stoma. Incision dressing is clean dry and intact. Dressings were changed again yesterday when his ostomy bag was changed. Stoma site remains dusky and retracted with some necrotic tissue, which is appropriate for this patient given his history of previous stoma in this site. He continues to meet with ostomy care. Patient is tolerating full liquid diet, still feels hungry. Denies nausea, vomiting after meals. Continue antibiotics Continue current pain management Continue to increase ambulation and incentive spirometry. Continue daily wound care. Okay to advance to full diet. <Bashir Zacarias PA-C - Last Filed: 01/19/25 09:36> Time Spent With Patient Time: Total time managing care of this patient today ____ minutes. <Bashir Zacarias PA-C - Last Filed: 01/19/25 09:36> Quality Stroke Does the patient have a stroke diagnosis?: No <Bashir Zacarias PA-C - Last Filed: 01/19/25 09:36> VTE Prior VTE?: No <Bashir Zacarias PA-C - Last Filed: 01/19/25 09:36> VTE Risk Level:: Medical - moderate - high <Bashir Zacarias PA-C - Last Filed: 01/19/25 09:36> VTE Device Contraindication: N/A - Device Ordered <Bashir Zacarias PA-C - Last Filed: 01/19/25 09:36> VTE Drug Contraindication: N/A - Med Ordered <Bashir Zacarias PA-C - Last Filed: 01/19/25 09:36>
[2025-01-19] MEDS: Docusate Sodium 100 MG CAPSULE PO ×2 (08:21→19:46)
[2025-01-19] MEDS: Nicotine 7 MG PATCH.TD24 TRANSDERMA (08:21)
[2025-01-19] MEDS: Lactated Ringers 1,000 ML 80 ML IVCONT (09:55)
[2025-01-19 12:00] VITALS: BP 134/71; PULSE 91; RESP 16; TEMP 36.8; O2SAT 97
--- NOTE | 2025-01-19 12:02 | MHC.CM.PN ---
Per review of notes, no plan for DC today. Patient requires pain management and on a full liquid diet. Case management following.
[2025-01-19] MEDS: Ibuprofen 600 MG TABLET PO (13:23)
[2025-01-19] MEDS: oxyCODONE HCl Immed Release 5 MG TABLET 10 MG PO ×2 (13:23→18:59)
[2025-01-19] MEDS: Acetaminophen 325 MG TABLET 975 MG PO (15:47)
[2025-01-19] MEDS: levoFLOXacin 500 MG TABLET PO (15:56)
[2025-01-19 16:17] VITALS: BP 124/65; PULSE 94; RESP 14; TEMP 37.7; O2SAT 95
[2025-01-19 19:37] VITALS: BP 128/74; PULSE 84; RESP 18; TEMP 36.9; O2SAT 96
[2025-01-20] VITALS: BP 116/65; PULSE 75; RESP 18; TEMP 36.6; O2SAT 97
[2025-01-20] MEDS: oxyCODONE HCl Immed Release 5 MG TABLET 10 MG PO ×3 (00:03→13:50)
[2025-01-20] MEDS: metroNIDAZOLE/NS 500 MG/100 ML PIGGYBACK 100 MG IV ×2 (00:04→08:38)
[2025-01-20 04:00] VITALS: BP 110/72; PULSE 82; RESP 16; TEMP 37; O2SAT 95
[2025-01-20] MEDS: Acetaminophen 325 MG TABLET 975 MG PO (06:21)
--- NOTE | 2025-01-20 07:01 | PM.PNGS ---
Subjective Subjective Date of Service: 01/20/25 <Bashir Zacarias PA-C - Last Filed: 01/20/25 08:28> 01/20/25 <Connor Paulson MD - Last Filed: 01/20/25 13:16> Patient reports: still having pain (increased from yesterday), flatus and bowel movement (small amount in ostomy bag) <Bashir Zacarias PA-C - Last Filed: 01/20/25 08:28> Interval history: Patient reporting increased bloating and abdominal pain that began last night. Pain today is a 7/10, worse with ambulation. Denies nausea. Patient has been OOB walking the floor and using incentive spirometry. Patient endorses 3 large meals yesterday. He continues to pass flatus and has passed a small bowel movement into the ostomy bag. He has been tolerating oral pain medications well <Bashir Zacarias PA-C - Last Filed: 01/20/25 08:28> Physical Exam Vital Signs: Vital Signs: Last Vital Signs Temp 98.6 F 01/20/25 04:00 Pulse 82 01/20/25 04:00 Resp 16 01/20/25 04:00 BP 110/72 01/20/25 04:00 Pulse Ox 95 01/20/25 04:00 O2 Del Method Room Air 01/20/25 04:00 O2 Flow Rate 2 01/16/25 16:22 BMI result Body Mass Index 34.3 <Bashir Zacarias PA-C - Last Filed: 01/20/25 08:28> Const: General: no acute distress <KEMI Rodriguez Last Filed: 01/20/25 08:28> Orientation/consciousness: patient oriented x3 <Bashir Zacarias PA-C - Last Filed: 01/20/25 08:28> Resp: Effort & Inspection: normal respiratory effort and able to speak in complete sentences <KEMI Rodriguez Last Filed: 01/20/25 08:28> GI: Other: Incision site dressing removed, wound is clean dry and intact, no erythema, edema or purulent drainage <KEMI Rodriguez Last Filed: 01/20/25 08:28> Palpation (GI): Soft to palpation, Tenderness to palpation present (GI) (generalized lower abdomen) and Guarding due to palpation present (GI) <Bashir Zacarias PA-C - Last Filed: 01/20/25 08:28> Percussion: Yes tympanic to percussion <Bashir Zacarias PA-C - Last Filed: 01/20/25 08:28> Neuro: General: patient oriented x3 <Bashir Zacarias PA-C - Last Filed: 01/20/25 08:28> Objective Data Active Medications Acetaminophen (Acetaminophen 325 Mg Tablet) 975 mg PO Q8H PRN PRN Reason: Pain, Moderate(Pain Scale 4-6) Last Admin: 01/20/25 06:21 Dose: 975 mg Documented By: TAO Calcium Carbonate (Calcium Carbonate 750 Mg Tab.Chew) 750 mg PO Q4H PRN PRN Reason: Heartburn Docusate Sodium (Docusate Sodium 100 Mg Capsule) 100 mg PO BID [facility] Last Admin: 01/19/25 19:46 Dose: 100 mg Documented By: LAZARO Metronidazole (Flagyl) 500 mg in 100 mls @ 100 mls/hr IV Q8H [facility] Last Infusion: 01/20/25 01:09 Dose: Infused Documented By: LAZARO Ibuprofen (Ibuprofen 600 Mg Tablet) 600 mg PO Q6H PRN PRN Reason: Pain, Moderate(Pain Scale 4-6) Last Admin: 01/19/25 13:23 Dose: 600 mg Documented By: KOKO Levofloxacin (Levofloxacin 500 Mg Tablet) 500 mg PO Q24H [facility] Last Admin: 01/19/25 15:56 Dose: 500 mg Documented By: KOKO Magnesium Hydroxide (Milk Of Magnesia 30 Ml Oral.Susp) 30 ml PO DAILY PRN PRN Reason: Constipation Melatonin (Melatonin 3 Mg Tablet) 6 mg PO BEDTIME PRN PRN Reason: Insomnia Morphine Sulfate (Morphine Sulfate 4 Mg/Ml Cartridge) 4 mg IVPUSH Q3H PRN; Protocol PRN Reason: Pain, Severe (Pain Scale 7-10) Last Admin: 01/18/25 16:52 Dose: 4 mg Documented By: AUGUSTINE Naloxone HCl (Naloxone Hcl 0.4 Mg/Ml Vial) 0.04 mg IVPUSH Q5M PRN PRN Reason: Excessive sedation or RR < 8 Nicotine (Nicotine 7 Mg Patch.Td24) 7 mg TRANSDERMA DAILY [facility] Last Admin: 01/19/25 08:21 Dose: 7 mg Documented By: KOKO Ondansetron HCl (Ondansetron Hcl 4 Mg/2 Ml Vial) 4 mg IVPUSH Q6H PRN PRN Reason: Nausea and Vomiting Oxycodone HCl (Oxycodone Hcl Immed Release 5 Mg Tablet) 10 mg PO Q4H PRN PRN Reason: Pain, Moderate(Pain Scale 4-6) Last Admin: 01/20/25 06:21 Dose: 10 mg Documented By: TAO Polyethylene Glycol (Polyethylene Glycol 3350 17 Gm Powd.Pack) 17 gm PO DAILY [facility] Sodium Chloride (0.9 % Sodium Chloride Flush 3 Ml Syringe) 3 ml IVFLUSH QSHIFT [facility] Last Admin: 01/20/25 00:04 Dose: Not Given Documented By: TAO Non-Admin Reason: IV Running <Bashir Zacarias PA-C - Last Filed: 01/20/25 08:28> Labs CBC & Chem 7: 01/17/25 09:05 01/17/25 09:05 <Bashir Zacarias PA-C - Last Filed: 01/20/25 08:28> Procedures Date of Service Date of Service: 01/20/25 <Bashir Zacarias PA-C - Last Filed: 01/20/25 08:28> 01/20/25 <Connor Paulson MD - Last Filed: 01/20/25 13:16> Progress Note: A&P Assessment and plan (1) Perforated bowel: Status: Acute <Bashir Zacarias PA-C - Last Filed: 01/20/25 08:28> Assessment and Plan: He was tolerating regular diet Good amounts of hard stools in the colostomy appliance now He has chronic constipation he says Has been ambulating T-max a 100 degrees yesterday but 97.9 this morning He says he feels well and wants to go home today Admits to incisional pain but states that this is controlled - last dose of IV morphine was yesterday; off IV tylenol We will re-evaluate later on Incisions clean, no pus, no cellulitis Tenderness appropriate Care discussed extensively with the patient and his significant other at bedside He has been seen by the stoma nurse during this admission <Connor Paulson MD - Last Filed: 01/20/25 13:16> Assessment and Plan: 44-year-old male POD 3 from partial sigmoid colon resection and stoma creation for a perforated bowel. Patients pain has increased to a 7/10 today and feels more bloated. Patient continues to pass flatus and a small amount of stool into ostomy bag. Patient tolerating oral diet and medications. Patient is OOB and using incentive spirometry as instructed. Dressing was removed at bedside at the time of evaluation. Incision site is not suggestive of infection. Patient instructed that he does not need to keep the wound covered. Continue current oral pain regimen Continue abx. Continue recommendations for ambulation and spirometry. Continue with diet, recommended smaller meals Continue ostomy care Continue bowel regimen <Bashir Zacarias PA-C - Last Filed: 01/20/25 08:28> Time Spent With Patient Time: Total time managing care of this patient today ____ minutes. <Bashir Zacarias PA-C - Last Filed: 01/20/25 08:28> Quality Stroke Does the patient have a stroke diagnosis?: No <Bashir Zacarias PA-C - Last Filed: 01/20/25 08:28> VTE Prior VTE?: No <Bashir Zacarias PA-C - Last Filed: 01/20/25 08:28> VTE Risk Level:: Medical - moderate - high <Bashir Zacarias PA-C - Last Filed: 01/20/25 08:28> VTE Device Contraindication: N/A - Device Ordered <Bashir Zacarias PA-C - Last Filed: 01/20/25 08:28> VTE Drug Contraindication: N/A - Med Ordered <Bashir Zacarias PA-C - Last Filed: 01/20/25 08:28>
[2025-01-20 08:00] VITALS: BP 134/75; PULSE 81; RESP 18; TEMP 36.6; O2SAT 95
[2025-01-20] MEDS: polyethylene glycoL 3350 17 GM POWD.PACK PO (08:37)
[2025-01-20] MEDS: Docusate Sodium 100 MG CAPSULE PO (08:37)
[2025-01-20] MEDS: 0.9 % Sodium Chloride Flush 3 ML SYRINGE IVFLUSH (08:38)
[2025-01-20] MEDS: Nicotine 7 MG PATCH.TD24 TRANSDERMA (11:52)
[2025-01-20 11:56] VITALS: BP 153/68; PULSE 84; RESP 16; TEMP 36.3; O2SAT 98
--- NOTE | 2025-01-20 12:31 | P.F2F_ITS ---
Service Date Service Date: 01/20/25 Encounter Date of encounter: 01/20/25 Reasons for Services Signs and symptoms assessed: ABD pain ostomy output diet intake/output incision site Reason for long-term: wound care and postoperative assessment and/or care Homebound: Leaving the home is medically contraindicated at this time without the asist of a device and/or another person due th the listed conditions above and below. Reason homebound: weakness related to hospital stay and unable to drive Homebound supporting statement: Mr. Helms is s/p laparotomy sigmoid resection with end colostomy creation. He will need visiting nurses for ostomy care Certification: Based on the above findings, I certify that this patient is confined to the home and needs intermittent long-term care, physical therapy and/or speech therapy, or continues to need occupational therapy. The patient is under my care, and I have initiated the establishment of the plan of care. The patient will be followed by a physician who will periodically review the plan of care. Time Spent With Patient Time: Total time managing care of this patient today ____ minutes.
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
--- NOTE | 2025-01-20 13:15 | PM.EVENT ---
Event Note Date of Service: 01/21/25 Event Note: Patient is seen on early afternoon rounds He continues to feel well Says he is ready to be discharged Tolerating diet Good pain control Stoma functioning Abdomen is soft No fever Good vital signs Discharge instructions again reviewed with the patient and his girlfriend at bedside Follow up instructions also given Prescriptions obtained by patient Time Spent With Patient Time: Total time managing care of this patient today ____ minutes.
--- NOTE | 2025-01-20 13:30 | MHC.CM.PN ---
explained to pt and his that we have been unable to locate a vna to follow pt in the community ,pt feels that he does not need a vna that this is not the first time he has had this surgery his agrees and will contact his pcp if something happens that they can not manage or have questions on
== END 2025-01-20 14:19 | disposition home or self-care (01) | DRG 231 ==
LOC: HO.ED 12:18 → HO.SSS 12:49 → HO.SSSA 16:23 → HO.S3 16:43
PROVIDERS: Admitting Provider Emergency Medicine; Emergency Provider Emergency Medicine; PCP Family Medicine; Visit Provider Surgery
PROC: 0DBN0ZZ Excision of Sigmoid Colon, Open Approach (ICD-10-PCS; CPT 49000; principal; 2025-01-16 13:30)
DX: K63.1 Perforation of intestine (nontraumatic) (principal); F17.210 Nicotine dependence, cigarettes, uncomplicated; K66.0 Peritoneal adhesions (postprocedural) (postinfection); Z71.6 Tobacco abuse counseling; Z79.899 Other long term (current) drug therapy
CPT/HCPCS: 36415; 74177; 80048; 80053; 81001; 82248; 83690; 85025; 85027; 86850; 86900; 86901; 88307; 99283; J0131; J1171; J1836; J1885; J1956; J2003; J2270; J2543; J2704; J2795; J3010; J7120; Q9967

== ENCOUNTER → 2025-01-16 10:34 | Outpatient (BNV) | payer BC, SELFPAY | PROVIDERS: Emergency Provider Emergency Medicine; Visit Provider Radiology Vascular & Interventional Radiology | DX: R10.9 Unspecified abdominal pain (principal) | CPT/HCPCS: 74177 ==

== ENCOUNTER → 2025-01-16 16:20 | Outpatient (BNV) | payer BC, SELFPAY | PROVIDERS: Admitting Provider Emergency Medicine; Emergency Provider Emergency Medicine; Visit Provider Surgery | DX: K63.1 Perforation of intestine (nontraumatic) (principal) | CPT/HCPCS: 99024; 99499 ==

== ENCOUNTER 2025-02-16 10:54 | Outpatient (AMB) | payer BC, SELFPAY ==
--- NOTE | 2025-02-16 11:01 | A.OFFVIS_ITS ---
Intake Visit Reasons: s/p colostomy Intake Note: Pt states, I'm here for f/u and for my colostomy. I have some bleeding around the ostomy. Allergies piperacillin [From Zosyn] Allergy (Verified 02/16/25 11:03) Rash tazobactam [From Zosyn] Allergy (Verified 02/16/25 11:03) Rash Medication List - Last Reconciled 02/16/25 by Kirt Whitmore RN docusate sodium (Colace) 100 mg PO BID ibuprofen 600 mg PO Q6H PRN oxycodone 5 mg PO Q4H PRN psyllium husk (Metamucil) 1 tbsp PO DAILY terbinafine HCl 250 mg PO DAILY testosterone 1 packet transdermal BEDTIME HPI Comments Details: 44 year old male who presents for follow up visit and wound/ostomy check. He underwent laparotomy, resection of short segment of sigmoid with perforation, extensive lysis of adhesions, end-colostomy for perforated sigmoid with Dr. Santana irwin on 01/16/25. He tolerated the procedure well. He was discharged on 01/20/25 on course of oral abx which he has since completed. He has been doing well. He lives in [facility] and his max were removed by his PCP down there. He is eating ok and tolerating solid diet without difficulty. His ostomy is functioning well and he is emptying it 3-4 times a day. His stool is more formed. He and his girlfriend have questions regarding returning to work and planning for eventual colostomy reversal. He has a FH of CRC in his family and is supposed to have screening colonoscopies every 5 years. He reports he is due. He reports some bumps and skin irritation surrounding the ostomy that he noticed this morning. He is able to obtain a good seal with the appliances and denies leaking. He is using a two piece. [facility] Family History (Updated 01/16/25 @ 12:32 by Connor Paulson MD) Other Family history of colon cancer Social History Household Members: Significant Other [facility] Do you presently have visiting nurse or other home services: No Patient Tobacco Use Status: Current everyday Tobacco user Tobacco use type: Cigarette e-Cigarette/Vaping Use: Never Used Second Hand Smoke Exposure: No service: No Review of Systems Const Denies chills and Denies fever(s) ENT Denies dizziness Card Denies chest pain and Denies dyspnea Resp Denies dyspnea GI Reports as per HPI Skin/Breast Reports as per HPI Neuro Denies dizziness Physical Exam Const General: comfortable, no acute distress and alert Orientation/consciousness: patient oriented x3 Resp Effort & Inspection: normal respiratory effort GI Other: ostomy retracted, beefy red appearance, stool in appliance Inspection: No distended and Yes incision (midline incision well healed ) Palpation (GI): Soft to palpation, nontender and no guarding Skin Other: warm and dry Neuro General: patient oriented x3 and moves all extremities Assessment & Plan Assessment & Plan (1) Colostomy in place: Code(s): Z93.3 - Colostomy status Category: Medical Plan 44 year old male s/p laparotomy, resection of short segment of sigmoid with perforation, extensive lysis of adhesions, end-colostomy for perforated sigmoid with Dr. Paulson on 01/16/25. He continues to do well. Discussed continuing restrictions of heavy lifting (>20lbs) and strenuous activity for another 2 weeks and he can then resume full duty. He was recommended to f/u with his PCP and schedule repeat colonoscopy down the line prior to his ostomy reversal. Discussed increasing fiber and water intake to help soften up stool. He showed a picture of the ostomy and surrounding skin- mild erythema and skin maceration of the tissue surrounding the ostomy. Seen with ADAM Moralez who educated on ostomy application technique. All questions answered. He can follow up in 1 month or sooner if needed. Medications: Discontinued levofloxacin Discontinued Reason: Patient Completed Course 500 mg PO DAILY 5 tabs 0RF metronidazole Discontinued Reason: Patient Completed Course 500 mg PO TID 15 tabs 0RF Coding Level of Care Code Global (41357) Diagnoses Colostomy in place Z93.3
--- OUTSIDE RECORDS SUMMARY | 2025-02-16 11:36 | XMS_ITS | Clinical Summary ---
Author Organization [address] [id number] Care Team Providers Care Patternmaker App[employer]ice [employer] Name Role Phone No, Pcp (Do Not Change Name) Primary Care Provid er Unavailable Immunizations Name Administration Dates Next Due COVID-19 Vaccine - PFIZER 01/22/2021,01/01/2021 Social History Tobacco Use Types Packs/Day Years Used Date Smoking Tobacco: Never Assessed Sex and Gender Information Value Date Recorded Sex Assigned at Not on file Legal Sex Male 9:57 AM EDT Gender Identity Not on file Sexual Orientation Not on file Plan of Treatment Health Maintenance Due Date Last Done Comments HIV screening 1995 Hepatitis C screening 2000 Tetanus adult (Td q 10,TDAP once) 2002 Lipid disorder screening 2022 Covid-19 vaccine series (2023- season) 2024 01/22/2021, 01/01/2021 Influenza vaccine 05/29/2025 RSV Immunization (1 - 1-dose 75+ series) 2057 Meningococcal Vaccine Aged Out No leroy ashia eligible based on patient's age to complete this topic Pneumococcal Vaccine (2 - 49 years) Aged Out No longer eligible b ased on patient's age to complete this topic Insurance CIGNA CIGNA CIGNA Care Teams Patternmaker [employer] Relationship Specialty Start Date End Date No, Pcp (Do Not Change Name) PCP - General 06/19/21
--- OUTSIDE RECORDS SUMMARY | 2025-02-16 11:36 | XMS_ITS | Encounter Summary ---
Author Organization [facility] Address [address] [place] [address] Care Team Providers Care Print Buyer Name Role Phone No, Pcp (Do Not Change Name) Primary Care Provid er Unavailable Encounter Details Date Type Department Care Team (Latest Contact Info) Description 06/19/2021 Transcribed Orders [place] [facility] [address] [facility] [address] [place] [address] Mitchel Presley DPM [address] [facility] [address] [place] [address] Macronychia (Primary Dx) Social History [...] - 1.0 mg/dL 06/19/2021 1:48 PM T [facility] DEPARTMENT OF PATHOLOGY Comment:Use of this assay is not recommended for patients undergoing treatment with Eltrombopag due to the potential for falsely elevated results. Bilirubin, Direct 0.1 0.0 - 0.3 mg/dL 06/19/2021 1:48 PM T [facility] DEPARTMENT OF PATHOLOGY Bilirubin, Indirect 0.3 mg/dL 06/19 1:48 PM T [facility] DEPARTMENT OF PATHOLOGY Alkaline Phosphatase 79 20 - 135 U/L 06/19/2021 1:48 PM [facility] DEPARTMENT OF PATHOLOGY Alanine Aminotransferase (ALT) 54 12 - 78 U/L 06/19/2021 1:48 PM EDT [facility] DEPARTMENT OF PATHOLOGY Aspartate Aminotransferase (AST) 20 5 - 37 U/L 06/19/2021 1:48 PM T [facility] DEPARTMENT OF PATHOLOGY AST/ALT Ratio 0.4 See Comment 06/19/2021 1:48 PM EDT [facility] DEPARTMENT OF PATHOLOGY Comment: Adult with mild elevations of transaminases (< 5 times upper limit of normal): AST/ALT > 2 suggests alcoholic liver injury AST/ALT < 1 suggests non-alcoholic fatty liver disease (NAFLD) [place] (healthy): AST/ALT can be > 3 on day 0 AST/ALT < 2 by day 5 The thresholds provided focus on the most common etiologies of elevated serum transaminase levels and the associated alteration of AST:ALT ratios; they are not intended to exclude other feasible and clinically appropriate possibilities Total Protein 7.5 6.4 - 8.2 g/dL 06/19/2021 1:48 PM T [facility] DEPARTMENT OF PATHOLOGY Albumin 4.0 3.4 - 5.0 g/dL 06/19/2021 1:48 PM T [facility] DEPARTMENT OF PATHOLOGY Globulin 3.5 g/dL 06/19/2021 1:48 PM T [facility] DEPARTMENT OF PATHOLOGY A/G Ratio 1.1 06/19/2021 1:48 PM T [facility] DEPARTMENT OF PATHOLOGY Blood Venipuncture / Unknown 06/19/2021 10:03 AM EDT 06/19/2021 10:03 AM EDT Mitchel Presley DP LAB BLOOD ORDERABLES Final Re sult [facility] DEPARTMENT OF PATHOLOGY [address] [place] [address] documented in this encounter Visit Diagnoses Diagnosis Macronychia- Primary Other specified disease of nail documented in this encounter Additional Health Concerns Infection Onset Date Last Indicated Resolved Time R/O COVID-19 04/06/2022 04/06/2022 04/06/2022 6:55 PM EDT COVID-19 04/06/2022 04/06/2022 04/16/2022 7:18 PM EDT documented as of this encounter Care Teams Print Buyer Relationship Specialty Start Date End Date No, Pcp (Do Not Change Name) PCP - General 06/19/21 documented as of this encounter
--- OUTSIDE RECORDS SUMMARY | 2025-02-16 11:36 | XMS_ITS | Clinical Summary ---
Author Organization [facility] Address [address] [place] [address] Care Team Providers Care Medical Clinic Manager Name Role Phone Unavailable Primary Care Provider [...] of 3 - 19+ 3-dose series) 2001 COVID-19 Vaccine ( - 2023-2 5 season) 2024 10/13/2021, 01/22/2021, 01/01/2021 Influenza Vaccine 04/28/2025 08/03/2019 HPV Vaccines Aged Out No longer eligi ble based on patient's age to complete this topic Pneumococcal Vaccine: Pediatric (0-5 Years) and At-Risk Patients (6 to 49 Years) Aged Out No longer eligible b ased on patient's age to complete this topic Insurance [facility]
== END 2025-02-16 11:53 | disposition home or self-care (01) ==
LOC: HO.HGS 10:55
PROVIDERS: PCP Family Medicine; Visit Provider Physician Assistant Surgical
DX: Z93.3 Colostomy status (principal)
CPT/HCPCS: 99024

== ENCOUNTER → 2025-02-16 10:54 | Outpatient (BNVA) | payer BC, SELFPAY | PROVIDERS: PCP Family Medicine; Visit Provider Physician Assistant Surgical ==

== ENCOUNTER 2025-04-03 09:57 | Outpatient (AMB) | payer BC, SELFPAY ==
--- NOTE | 2025-04-03 09:59 | MHC.OFFVIS ---
Vital Signs 04/03/25 10:13 Height 6 ft 1 in Weight 243 lb 4 oz BMI 32.1 BP 137/87 Blood Pressure Location Lt brachial Position Sitting Pulse 68 Intake Visit Reasons: 1 month follow up s/p colostomy Intake Note: Patient is seen in office for 2 month follow up visit post colostomy. 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 He underwent laparotomy, resection of short segment of sigmoid with perforation, extensive lysis of adhesions, end-colostomy for perforated sigmoid with Dr. Paulson on 01/16/25. He tolerated the procedure well. His ostomy is functioning well and he has a two piece closed appliance which he changes 3-4 times a day. He usually changes his colostomy barrier every 4 days. His stool is soft. 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 At the last visit, he was supposed to follow up with his PCP and have a repeat screening colonoscopy however he would like Dr. Paulson to do it. Girlfriend is present who is asking about restrictions post operatively following the colostomy reversal. They have no concerns, they are just wondering a time line for eventual reversal. PFSH Family History Other Family history of colon cancer Social History Household Members: Significant Other Housing: Condominium Do you presently have visiting nurse or other home services: No Patient Tobacco Use Status: Current everyday Tobacco user Tobacco use type: Cigarette e-Cigarette/Vaping Use: Never Used Second Hand Smoke Exposure: No service: No Review of Systems Card Denies chest pain and Denies dyspnea Resp Denies dyspnea GI Reports as per HPI, Denies abdominal pain, Denies hematochezia and Denies vomiting Skin/Breast Denies rash Physical Exam Vital Signs: Last Vital Signs Pulse 68 04/03/25 10:13 BP 137/87 04/03/25 10:13 BMI result Body Mass Index 32.1 Const General: comfortable, no acute distress and alert Orientation/consciousness: patient oriented x3 Resp Effort & Inspection: normal respiratory effort GI Other: corpulent abdomen midline incision well healed ostomy beefy red, soft brown stool in appliance Inspection: No distended Palpation (GI): Soft to palpation, nontender and no guarding Skin General skin exam: no rashes or lesions noted Neuro General: patient oriented x3 Assessment & Plan Assessment & Plan (1) Colostomy in place: Code(s): Z93.3 - Colostomy status Category: Medical Plan 44 year old male s/p laparotomy, resection of short segment of sigmoid with perforation, extensive lysis of adhesions, end-colostomy for perforated sigmoid with Dr. Paulson on 01/16/25. He is overall doing well and colostomy is functioning well. He has a FH of CRC and is due for screening colonoscopy. We discussed proceeding with colonoscopy via the rectum and colostomy prior to reversal and he would like this done here. We also discussed colostomy reversal and he will have lifting and heavy lifting restrictions for 6-8 weeks following the procedure. He would therefore like to wait until his work is less busy in July. Arrangements for the colonoscopy will be made for next month with a follow up visit after to further discuss results and schedule colostomy reversal. Prep will be sent to the pharmacy. Patient and girlfriend comfortable with plan. Coding Level of Care Code Est Pt Level 3 (83896) Diagnoses Colostomy in place Z93.3
[2025-04-03 10:13] VITALS: BP 137/87; PULSE 68; BMI 32.1
--- OUTSIDE RECORDS SUMMARY | 2025-04-03 10:37 | XMS_ITS | Clinical Summary ---
Author Organization [facility] Address [address] [place] [address] Care Team Providers Care Cargo Tank Mechanic Name Role Phone Unavailable Primary Care Provider [...] 64 12/23/2020 1:57 PM EDT Temperature 37.1 C (98.7 F) 12/23/2020 1:57 PM EDT Respiratory Rate 18 12/23/2020 1:57 PM EDT [...] patient's age to complete this topic Insurance [facility]
--- OUTSIDE RECORDS SUMMARY | 2025-04-03 10:37 | XMS_ITS | Clinical Summary ---
Author Organization [address] [address] Care Team Providers Care Asphalt Plant Laborer Name Role Phone No, Pcp (Do Not Change Name) Primary Care Provid er Unavailable Immunizations Immunization Administration Dates Next Due COVID-19 Vaccine - [...] topic Insurance CIGNA CIGNA CIGNA Care Teams Asphalt Plant Laborer Relationship Specialty Start Date End Date No, Pcp (Do Not Change Name) PCP - General 06/19/21
== END 2025-04-03 10:38 | disposition home or self-care (01) ==
LOC: HO.HGS 09:58
PROVIDERS: PCP Family Medicine; Visit Provider Physician Assistant Surgical
DX: Z93.3 Colostomy status (principal)
CPT/HCPCS: 99024

== ENCOUNTER 2025-06-02 06:14 | Day surgery (SDC) | payer BC, SELFPAY ==
--- OUTSIDE RECORDS SUMMARY | 2025-04-18 12:51 | XMS_ITS | Clinical Summary ---
Author Organization [address] [address] Care Team Providers Care Knot Bumper Name Role Phone No, Pcp (Do Not [...] topic Insurance CIG[employer] CIGNA CIGNA Care Teams Knot Bumper Relationship Specialty Start Date End Date No, Pcp (Do Not Change Name) PCP - General 06/19/21
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
[2025-05-30 15:07] VITALS: BMI 32.1
--- NOTE | 2025-06-01 09:57 | P.CONAN_ITS ---
Documented by User: Anna Ackerman NP 06/01/25 09:58 HPI - Anesthesia Eval Consult details Narrative: 45yo M for Colonoscopy via Rectum and Colostomy s/p ex lap for perf bowel 12/2024 with GA-ETT 7 ostomy PMFSH Active Problems Active Problems: All Active Problems Colostomy in place (Acute) Perforated bowel (Acute) Acute abdomen (Acute) Family History Family History Other Family history of colon cancer Family history of problems with anesthesia: No Surgical History Surgical History Hx of colonoscopy Hx of exploratory laparotomy (01/16/25) History of Problems with Anesthesia: No Social History Social History Household Members: Significant Other Housing: [facility] Do you presently have visiting nurse or other home services: No Patient Tobacco Use Status: Current everyday Tobacco user Tobacco use type: Cigarette e-Cigarette/Vaping Use: Never Used Second Hand Smoke Exposure: No Have you been hit, kicked, punched, or otherwise hurt by someone within the past year? If so, by whom?: No Are you DNR?: No Advance Directives: No Advance Directives Information Provided: Yes service: No Meds Allergies Allergy/AdvReac Type Severity Reaction Status Date / Time piperacillin (From Zosyn) Allergy Rash Verified 04/03/25 10:13 tazobactam (From Zosyn) Allergy Rash Verified 04/03/25 10:13 Home Medications ?Medication ?Instructions ?Recorded ?Confirmed ?Last Taken ?Type testosterone 1.62 % (40.5 mg/2.5 1 packet transdermal BEDTIME 01/16/25 06/02/25 05/30/25 History gram) transdermal gel packet Exam Height,Weight and Vital Signs: Height 6 ft 1 in Weight 110.336 kg Assessment and Plan Assessment Anesthesia Assessment: Chart Reviewed Final Anesthetic Review Family History of Problems with Anesthesia: No History of Problems with Anesthesia: No Documented by User: Oswaldo Paulino MD 06/02/25 07:12 [facility] Past Medical History Functional capacity: independent ambulation Family History Family History Other Family history of colon cancer Surgical History Surgical History Hx of colonoscopy Hx of exploratory laparotomy (01/16/25) Social History Social History Household Members: Significant Other Housing: Condominium Do you presently have visiting nurse or other home services: No Patient Tobacco Use Status: Current everyday Tobacco user Tobacco use type: Cigarette e-Cigarette/Vaping Use: Never Used Second Hand Smoke Exposure: No Have you been hit, kicked, punched, or otherwise hurt by someone within the past year? If so, by whom?: No Are you DNR?: No Advance Directives: No Advance Directives Information Provided: Yes service: No Meds Allergies Allergy/AdvReac Type Severity Reaction Status Date / Time piperacillin (From Zosyn) Allergy Rash Verified 04/03/25 10:13 tazobactam (From Zosyn) Allergy Rash Verified 04/03/25 10:13 Home Medications ?Medication ?Instructions ?Recorded ?Confirmed ?Last Taken ?Type testosterone 1.62 % (40.5 mg/2.5 1 packet transdermal BEDTIME 01/16/25 06/02/25 05/30/25 History gram) transdermal gel packet Exam Exam Date and Time: 06/02/2025 Airway Mallampati Class: II TM Dist: >3cm Neck ROM: Full Loose/Missing/Broken Teeth: No Heart: rrr Lungs: cts Assessment and Plan Final Anesthetic Review NPO: Yes ASA Class: II Final Preanesthetic Review: No Changes in Pt Med Stat, Meds/Allgs Chart Reviewed, Consent Obtained/Reviewed and Anes Risks/Benef Reviewed Patient Risk: Low Procedure Risk: Low Anesthetic Plan Anesthetic Plan: GA Disposition: Standard PACU
[2025-06-02 06:18] VITALS: BP 135/79; PULSE 81; RESP 18; TEMP 36.9; O2SAT 97; BMI 31.9
[2025-06-02] MEDS: Lactated Ringers 1,000 ML 100 ML IVCONT (06:46)
--- NOTE | 2025-06-02 07:18 | MHC.SHP ---
Pre-Procedural Eval Section A - 24 Hr Update-Section A only Date of Service: 06/02/25 Section B - Complete if H&P > 30 days Chief Complaint: Colostomy status Details of Present Illness: Had an emergent sigmoid resection, end colostomy for perforation along an old anastomosis, now for colonoscopy Relevant Family History (Specify if Yes): No Relevant Social History: None Present Medications: see Short Stay Collaborative assessment Medical History: No relevant PMH Allergies: Allergies Allergy/AdvReac Type Severity Reaction Status Date / Time piperacillin (From Zosyn) Allergy Rash Verified 04/03/25 10:13 tazobactam (From Zosyn) Allergy Rash Verified 04/03/25 10:13 Review of Systems Sugical H&P ROS: Negative: Constitution, Cardiovascular and Respiratory Exam Surgical H&P Exam: Normal: Heart and Normal: Lungs and Significant Findings: Abdomen (Has colostomy) Plan Diagnosis/Plan: Unchanged I have reviewed the history and physical and performed a pertinent physical examination on my patient. No changes have occurred unless specified. Time Spent With Patient Time: Total time managing care of this patient today ____ minutes.
--- NOTE | 2025-06-02 08:06 | W.PM.OPN ---
Operative Note Operative Note Date of Service: 06/02/25 Narrative: Preop diagnosis: Colostomy in place, status post sigmoid resection for perforation along an old anastomosis Postop diagnosis: No significant findings in the rectal pouch as well as the remaining colon Procedure: Colonoscopy via the stoma in the rectum Surgeon: Connor Paulson MD The patient is a 45-year-old male who had undergone short segment resection of a previous anastomosis in the sigmoid because of the perforation last December,. He is here for a colonoscopy via the stoma in the rectum to evaluate the remaining colon. Understood the technique of the procedure as well as the risks, benefits, and alternatives. He was brought to the operating room placed in left lateral decubitus position under monitored anesthesia care. A surgical time-out was done. A full digital rectal exam was done and there were no palpable anal canal lesions. The tip of the Olympus colonoscope was gently introduced through the anal orifice and advanced all the way into the beginning of the rectal pouch. The rectal pouch was about 5 cm long. I examined the entire rectal pouch and there were no lesions seen. The anal canal was unremarkable I then proceeded to turn the patient supine. We intubated the stoma the colonoscope and this was gently advanced through the entire length of the colon to the cecum. The cecum was examined after identification of the ileocecal valve. The cecal mucosa was unremarkable. The scope was then gradually withdrawn with careful examination of the entire colonic mucosa. He had adequate bowel prep so it was unlikely that any lesion may have been missed. There was no diverticuosis. There were no lesions or any abnormal looking mucosa The scope was then withdrawn completely with desufflation The patient tolerated procedure well. There were no immediate complications The patient was transferred to the recovery room with stable vital signs
[2025-06-02 08:13] VITALS: BP 84/47; PULSE 79; RESP 16; TEMP 36.8; O2SAT 92
[2025-06-02 08:28] VITALS: BP 94/58; PULSE 64; RESP 12; O2SAT 93
[2025-06-02 08:38] VITALS: BP 107/70; PULSE 80; RESP 16; TEMP 36.8; O2SAT 95
== END 2025-06-02 08:59 | disposition home or self-care (01) ==
PROVIDERS: PCP Family Medicine; Visit Provider Surgery
PROC: 0DJD8ZZ Inspection of Lower Intestinal Tract, Via Natural or Artificial Opening Endoscopic (ICD-10-PCS; CPT 45378; principal; 2025-06-02 07:30)
DX: Z12.11 Encounter for screening for malignant neoplasm of colon (principal); Z93.3 Colostomy status; Z90.49 Acquired absence of other specified parts of digestive tract; Z87.19 Personal history of other diseases of the digestive system; Z88.1 Allergy status to other antibiotic agents; F17.210 Nicotine dependence, cigarettes, uncomplicated
CPT/HCPCS: 44388; 44385; J2003; J2704; J3010

== ENCOUNTER → 2025-06-02 06:14 | Outpatient (BNV) | payer BC, SELFPAY | PROVIDERS: PCP Family Medicine; Visit Provider Surgery | DX: Z90.49 Acquired absence of other specified parts of digestive tract (principal) | CPT/HCPCS: 44388; 45330 ==

== ENCOUNTER 2025-06-15 08:32 | Outpatient (AMB) | payer BC, SELFPAY ==
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
[2025-06-15 08:45] VITALS: BP 132/67; PULSE 64; BMI 32.6
--- OUTSIDE RECORDS SUMMARY | 2025-06-15 09:44 | XMS_ITS | Encounter Summary ---
Author Organization [facility] Address [address] [place] [address] Care Team Providers Care Aircraft Servicer Name Role Phone No, Pcp (Do Not Change Name) Primary Care Provid er Unavailable Encounter Details Date Type Department Care Team (Latest Contact Info) Description 06/19/2021 Transcribed Orders [place] [facility] [address] [facility] [address] [place] [address] Mitchel Presley DPM [address] [facility] [address] [place] [address] Macronychia (Primary Dx) Social History [...] - 1.0 mg/dL 06/19/2021 1:48 PM T [facility] Comment:Use of this assay is not recommended for patients undergoing treatment with Eltrombopag due to the potential for falsely elevated results. Bilirubin, Direct 0.1 0.0 - 0.3 mg/dL 06/19/2021 1:48 PM T [facility] Bilirubin, Indirect 0.3 mg/dL 06/19 1:48 PM T [facility] Alkaline Phosphatase 79 20 - 135 U/L 06/19/2021 1:48 PM [facility] Alanine Aminotransferase (ALT) 54 12 - 78 U/L 06/19/2021 1:48 PM EDT [facility] Aspartate Aminotransferase (AST) 20 5 - 37 U/L 06/19/2021 1:48 PM T [facility] AST/ALT Ratio 0.4 See Comment 06/19/2021 1:48 PM EDT [facility] Comment: Adult with mild elevations of transaminases (< 5 times upper limit of normal): AST/ALT > 2 suggests alcoholic liver injury AST/ALT < 1 suggests non-alcoholic fatty liver disease (NAFLD) (healthy): AST/ALT can be > 3 on day 0 AST/ALT < 2 by day 5 The thresholds provided focus on the most common etiologies of elevated serum transaminase levels and the associated alteration of AST:ALT ratios; they are not intended to exclude other feasible and clinically appropriate possibilities Total Protein 7.5 6.4 - 8.2 g/dL 06/19/2021 1:48 PM T [facility] Albumin 4.0 3.4 - 5.0 g/dL 06/19/2021 1:48 PM T [facility] Globulin 3.5 g/dL 06/19/2021 1:48 PM T [facility] A/G Ratio 1.1 06/19/2021 1:48 PM T [facility] Blood Venipuncture / Unknown 06/19/2021 10:03 AM EDT 06/19/2021 10:03 AM EDT Mitchel Presley DP LAB BLOOD ORDERABLES Final Re sult [facility] [address] [place] [address] documented in this encounter Visit Diagnoses Diagnosis Macronychia- Primary Other specified disease of nail documented in this encounter Additional Health Concerns Infection Onset Date Last Indicated Resolved Time R/O COVID-19 04/06/2022 04/06/2022 04/06/2022 6:55 PM EDT COVID-19 04/06/2022 04/06/2022 04/16/2022 7:18 PM EDT documented as of this encounter Care Teams Aircraft Servicer Relationship Specialty Start Date End Date No, Pcp (Do Not Change Name) PCP - General 06/19/21 documented as of this encounter
--- OUTSIDE RECORDS SUMMARY | 2025-06-15 09:44 | XMS_ITS | Clinical Summary ---
Author Organization [address] [address] Care Team Providers Care Environmental Conflict Manager Name Role Phone No, Pcp (Do Not [...] Lipid disorder screening 2022 Covid-19 vaccine series ( season) 2025 01/22/2021, 01/01/2021 Influenza vaccine 05/29/2025 RSV Immunization (1 - 1-dose 75+ series) 2057 Meningococcal B Vaccine Aged Out No l onger eligible based on patient's age to complete this topic Meningococcal Vaccine Aged Out No leroy ashia eligible based on patient's age to complete this topic Pneumococcal Vaccine (2 - 49 years) Aged Out No longer eligible b ased on patient's age to complete this topic Insurance [employer] [facility] [facility] [place] [id number] [place] [id number] Care Teams Environmental Conflict Manager Relationship Specialty Start Date End Date No, Pcp (Do Not Change Name) PCP - General 06/19/21
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
== END 2025-06-15 09:08 | disposition home or self-care (01) ==
LOC: HO.HGS 08:33
PROVIDERS: PCP Family Medicine; Visit Provider Surgery
DX: Z93.3 Colostomy status (principal)
CPT/HCPCS: 99213